=== PATIENT | female | born 1980 | race Caucasian/White ===

== ENCOUNTER 2022-01-27 04:53 | Day surgery (SDC) | payer OTHER ==
[2022-01-26 13:49] VITALS: BMI 41.1
[2022-01-27 12:35] VITALS: TEMP 97.6
[2022-01-27 13:06] VITALS: RESP 16
[2022-01-27 13:37] VITALS: BP 151/90; PULSE 75
== END 2022-01-27 13:30 | disposition home or self-care (01) ==
LOC: JASU-ENDO 04:53
PROVIDERS: ATTEND Internal Medicine Gastroenterology
PROC: 0DJD8ZZ Inspection of Lower Intestinal Tract, Via Natural or Artificial Opening Endoscopic (ICD-10-PCS; principal; 2022-01-27 11:30)
DX: K57.30 Diverticulosis of large intestine without perforation or abscess without bleeding (principal); K64.8 Other hemorrhoids
CPT/HCPCS: 81025